=== PATIENT | male | born 1990 | race Two or more races ===

== ENCOUNTER 2020-10-04 08:02 | Emergency (ER) | payer OTHER ==
[~2020-10-04] VITALS: Ht 170.2 cm; Wt 161.9 kg
[2020-10-04] MEDS ORDERED: SODIUM CHLORIDE 0.9% 1,000 ML IV ONE (08:15)
[2020-10-04] MEDS ORDERED: FAMOTIDINE 10 MG/ML 2 ML VIAL IVP ONE (08:15)
[2020-10-04] MEDS ORDERED: MethylPREDNISolone SOD SUCC 125 MG/2 ML VIAL IVP ONE (08:15)
[2020-10-04 13:00] VITALS: BP 121/76
== END 2020-10-04 13:59 | disposition home or self-care (01) ==
LOC: EMS 08:08
DX: T78.40XA Allergy, unspecified, initial encounter (principal); X58.XXXA Exposure to other specified factors, initial encounter
CPT/HCPCS: 96361; 96374; 96375; 99284; J2930; J3490; J7030